=== PATIENT | female | born 1985 | race Caucasian/White ===

== ENCOUNTER 2017-02-15 20:39 | Emergency (ER) | payer OTHER ==
[2017-02-15 20:47] VITALS: BP 143/96
== END 2017-02-15 23:02 | disposition home or self-care (01) ==
LOC: ED 20:39
DX: B34.9 Viral infection, unspecified (principal); I10 Essential (primary) hypertension
CPT/HCPCS: J1100

== ENCOUNTER 2017-04-24 19:20 | Emergency (ER) | payer OTHER ==
[~2017-04-24] VITALS: Ht 160 cm; Wt 115.7 kg
[2017-04-24 23:05] VITALS: BP 140/93
== END 2017-04-24 21:50 | disposition home or self-care (01) ==
LOC: ED 19:20
DX: M75.21 Bicipital tendinitis, right shoulder (principal)

== ENCOUNTER 2017-05-14 22:31 | Emergency (ER) | payer OTHER ==
[~2017-05-14] VITALS: Ht 160 cm; Wt 113.4 kg
[2017-05-14 23:15] VITALS: Ht 160 cm; Wt 113.4 kg
[2017-05-15 00:08] VITALS: BP 133/90
== END 2017-05-15 00:08 | disposition home or self-care (01) ==
LOC: ED 22:31
DX: B34.9 Viral infection, unspecified (principal); I10 Essential (primary) hypertension

== ENCOUNTER 2017-05-25 23:35 | Emergency (ER) | payer OTHER ==
[~2017-05-25] VITALS: Ht 160 cm; Wt 113.4 kg
[2017-05-26 00:03] VITALS: BP 145/92; Ht 160 cm; Wt 113.4 kg
== END 2017-05-26 04:10 | disposition left against medical advice (07) ==
LOC: ED 23:35
DX: Z53.21 Procedure and treatment not carried out due to patient leaving prior to being seen by health care provider (principal)

== ENCOUNTER 2017-08-13 07:51 | Emergency (ER) | payer OTHER ==
[~2017-08-13] VITALS: Ht 160 cm; Wt 116.6 kg
[2017-08-13 08:03] VITALS: Ht 160 cm; Wt 116.6 kg
[2017-08-13 09:07] VITALS: BP 152/84
== END 2017-08-13 09:07 | disposition home or self-care (01) ==
LOC: ED 07:51
DX: M79.642 Pain in left hand (principal); M79.641 Pain in right hand; I10 Essential (primary) hypertension

== ENCOUNTER 2017-08-30 05:10 | Emergency (ER) | payer OTHER ==
[2017-08-30 06:43] VITALS: BP 139/91
== END 2017-08-30 06:43 | disposition home or self-care (01) ==
LOC: ED 05:10
DX: J03.90 Acute tonsillitis, unspecified (principal); I10 Essential (primary) hypertension; E66.01 Morbid (severe) obesity due to excess calories
CPT/HCPCS: J0696; J1100; Q0092

== ENCOUNTER 2018-07-16 07:40 | Emergency (ER) | payer OTHER ==
[~2018-07-16] VITALS: Ht 160 cm; Wt 117.9 kg
[2018-07-16 07:50] VITALS: BP 141/84; Ht 160 cm; Wt 117.9 kg
== END 2018-07-16 08:56 | disposition home or self-care (01) ==
LOC: ED 07:40
DX: J06.9 Acute upper respiratory infection, unspecified (principal); I10 Essential (primary) hypertension

== ENCOUNTER 2019-01-01 18:29 | Emergency (ER) | payer MEDICAID ==
[~2019-01-01] VITALS: Ht 160 cm; Wt 106.6 kg
[2019-01-01 20:07] LABS: BASOPHIL % 0.4 % (0-2); PLATELET COUNT 389 x10^3mcL (130-400)
[2019-01-01 20:11] LABS: RED CELL DISTRIBUTION WIDTH 20.6 % (11.5-14.5)
[2019-01-01 20:18] LABS: CALCIUM 9.5 mg/dL (8.5-10.1); CARBON DIOXIDE 28.4 mmol/L (21-32); CHLORIDE SERUM 104 mmol/L (98-107); CREATININE SERUM 0.6 mg/dL (0.6-1.0); GFR1 > 60 mL/min; GLUCOSE SERUM 95 mg/dL (74-106); POTASSIUM SERUM 3.5 mmol/L (3.5-5.1); SODIUM SERUM 142 mmol/L (136-145)
[2019-01-01 20:23] LABS: ALBUMIN 3.6 g/dL (3.4-5.0); ALKALINE PHOSPHATASE 68 U/L (46-116); ALT/SGPT 49 U/L (14-59); AST/SGOT 35 U/L (15-37); BILIRUBIN TOTAL 0.3 mg/dL (0.20-1.00)
[2019-01-01 20:25] LABS: TOTAL PROTEIN, SERUM 8.3 g/dL (6.4-8.2)
[2019-01-02 00:22] VITALS: BP 138/93
== END 2019-01-02 00:23 | disposition home or self-care (01) ==
LOC: ED 18:29
DX: K59.00 Constipation, unspecified (principal)
CPT/HCPCS: 36415; 87491; 87591

== ENCOUNTER 2020-03-30 10:02 | Emergency (ER) | payer MEDICAID ==
[~2020-03-30] VITALS: Ht 160 cm; Wt 109.8 kg
[2020-03-30 10:20] VITALS: Ht 160 cm; Wt 109.8 kg
[2020-03-30 10:51] LABS: microscopic required? NO
[2020-03-30 11:05] LABS: UA SPECIFIC GRAVITY 1.015 (1.005-1.035); urine erythrocyte NEGATIVE (NEGATIVE)
[2020-03-30 11:29] LABS: PLATELET COUNT 418 x10^3mcL (130-400); RED CELL DISTRIBUTION WIDTH 20.2 % (11.5-14.5)
[2020-03-30 11:38] LABS: CALCIUM 8.6 mg/dL (8.5-10.1); CARBON DIOXIDE 30.1 mmol/L (21-32); CHLORIDE SERUM 99 mmol/L (98-107); CREATININE SERUM 0.7 mg/dL (0.6-1.0); GFR1 > 60 mL/min; GLUCOSE SERUM 84 mg/dL (74-106); SODIUM SERUM 137 mmol/L (136-145)
[2020-03-30 11:50] LABS: ALBUMIN 3.7 g/dL (3.4-5.0); ALKALINE PHOSPHATASE 59 U/L (46-116); ALT/SGPT 43 U/L (14-59); AST/SGOT 16 U/L (15-37); BILIRUBIN DIRECT 0.08 mg/dL (0.0-0.2); BILIRUBIN TOTAL 0.3 mg/dL (0.20-1.00); FREE T4 1.03 ng/dL (0.76-1.46); TOTAL PROTEIN, SERUM 7.6 g/dL (6.4-8.2)
[2020-03-30 12:43] VITALS: BP 144/81
[2020-03-30 13:15] LABS: ATYPICAL LYMPH 3 %; BAND NEUTROPHIL 7 % (0-10); BASOPHIL 0 % (0-2); MONOCYTE 5 % (0-7); SEGMENTED NEUTROPHILS 52 % (37-75)
[2020-03-30 13:18] LABS: PLATELET MORPHOLOGY GIANT PLATELET SEEN; rbc morphology (normal/abnorm) ABNORMAL (NORMAL); tear drop cell (dacryocyte) 1+
== END 2020-03-30 12:43 | disposition home or self-care (01) ==
LOC: ED 10:02
PROVIDERS: Emergency Medicine
DX: E87.6 Hypokalemia (principal); R53.83 Other fatigue; R50.9 Fever, unspecified; Z20.828 Contact with and (suspected) exposure to other viral communicable diseases
CPT/HCPCS: 84439; Q0092; U0003